=== PATIENT | female | born 1935 | race Caucasian/White ===

== ENCOUNTER 2019-07-16 15:16 | Inpatient (IN) ==
--- NOTE | 2019-07-16 15:31 | Diag Imaging Result Doc PS360 ---
CT HEAD W/O CONTRAST - 07/16/2019 INDICATION: stroke like symptoms COMPARISON: None FINDINGS: The ventricles and sulci are normal in size and contour. No intracranial mass or hemorrhage. There is mild periventricular white matter chronic microvascular ischemia. The skull is intact. The sinuses, mastoids, and middle ears are clear. IMPRESSION: No acute process. This exam was performed using automated exposure control, adjustment of mA or kV according to patient size, and/or use of iterative reconstruction technique Electronically signed by Jose E Rodriguez 07/16/2019 3:28 PM
[2019-07-16] MEDS ORDERED: D50W SYRINGE IV ONE ×2 (15:33→15:45)
[2019-07-16] MEDS ORDERED: AMIDATE ONE (15:42)
[2019-07-16] MEDS ORDERED: QUELICIN ONE (15:43)
[2019-07-16] MEDS ORDERED: NS 1,000 ML IV PRN (16:00)
--- NOTE | 2019-07-16 16:16 | EKG Report ---
Test Performed on : 07/16/2019 3:39:39 PM Test Reason : POSS STROKE Blood Pressure : / mmHG Vent. Rate : 091 BPM Atrial Rate : 091 BPM P-R Int : 200 ms QRS Dur : 092 ms QT Int : 402 ms P-R-T Axes : 062 011 054 degrees QTc Int : 494 ms Normal sinus rhythm. Prolonged QT Abnormal ECG When compared with ECG of 29-JUN-2019 10:37, (Unconfirmed) No significant change was found Unconfirmed Result
[2019-07-16 16:18] LABS: URINE SOURCE CATH
[2019-07-16 16:20] LABS: BILIRUBIN URINE NEGATIVE (NEGATIVE); BLOOD URINE NEGATIVE (NEGATIVE); COLOR YELLOW; GLUCOSE URINE TRACE mg/dL (NEGATIVE); KETONE URINE NEGATIVE (NEGATIVE); LEUKOCYTES URINE NEGATIVE (NEGATIVE); NITRITE URINE NEGATIVE (NEGATIVE); PH URINE 5.5; PROTEIN URINE NEGATIVE (NEGATIVE); SP GRAVITY URINE 1.019; TURBIDITY URINE CLEAR (CLEAR); UROBILINOGEN URINE NORMAL (NORMAL)
--- NOTE | 2019-07-16 16:21 | Diag Imaging Result Doc PS360 ---
CHEST-PORTABLE - 07/16/2019 INDICATION: stroke like symptoms COMPARISON: 11/10/2014 FINDINGS: The lungs are normally expanded and clear. Heart size and mediastinal contours are normal. No pneumothorax or pleural effusion. There is a right total shoulder prosthesis in good position. IMPRESSION: Negative exam. Electronically signed by Jose E Rodriguez 07/16/2019 4:19 PM
[2019-07-16 16:22] LABS: UR EPITHELIAL CELLS <10 /HPF (<10); URINE BACTERIA NEGATIVE /HPF; URINE RBC <10 /HPF (<10); URINE WBC <10 /HPF (<10)
[2019-07-16 16:23] LABS: HEMOGLOBIN 11.5 g/dL (12.0-16.0); LYMPH% 9.4 % (20.5-51.1); MCH 28.3 PG (27-31); MCHC 31.9 g/dL (33-37); MCV 88.7 FL (81-99); MPV 10.3 FL (7.4-10.4); NEUT% 75.8 % (42.2-75.2); PLT 399 X1000 (130-400); RBC 4.06 XMIL (4.2-5.4); RDW 15.1 % (11.5-14.5); WBC 10.98 X1000 (4.8-10.8)
[2019-07-16 16:24] LABS: BASO# 0.07 X1000 (0.0-0.2); BASO% 0.6 % (0.0-0.8); EOS# 0.34 X1000 (0.0-0.7); EOS% 3.1 % (0.0-10.0); IMM GRAN# 0.03 X1000 (0.0-0.04); IMM GRAN% 0.3 % (0.0-0.5); LYMPH# 1.03 X1000 (1.2-3.4); MONO# 1.19 X1000 (0.11-0.59); MONO% 10.8 % (1.7-9.3); NEUT# 8.32 X1000 (1.4-6.5)
[2019-07-16 16:28] LABS: INR 1.12; PROTIME 14.6 Seconds (11.0-16.0); PTT 32.4 Seconds (22.3-41.8)
[2019-07-16 16:36] LABS: ALB/GLOB RATIO 1.5; ALBUMIN 4.2 g/dL (3.5-5.0); CALCIUM 8.8 mg/dL (8.8-10.2); CREATININE 1.1 mg/dL (0.5-0.9); POTASSIUM 3.8 mmol/L (3.5-5.1); TOTAL BILIRUBIN 0.26 mg/dL (0.20-1.00)
[2019-07-16 16:38] LABS: UR AMPHETAMINES QUAL NONE DETECTED (NONE DETECT); UR BARBITUATES QUAL NONE DETECTED (NONE DETECT); UR BENZODIAZEPIN QUAL NONE DETECTED (NONE DETECT); UR CANNABINOIDS QUAL NONE DETECTED (NONE DETECT); UR COCAINE QUAL NONE DETECTED (NONE DETECT); UR METHADONE QUAL NONE DETECTED (NONE DETECT); UR OPIATES QUAL NONE DETECTED (NONE DETECT); UR OXYCODONE QUAL PRESUMPTIVE POSITIVE (NONE DETECT); UR PCP QUAL NONE DETECTED (NONE DETECT)
[2019-07-16] MEDS ORDERED: D10W 500 ML IV SCH (16:45)
--- NOTE | 2019-07-16 17:30 | PROVIDER DOCUMENTATION ---
This chart was entered by Liliam Mcghee Scribe, acting as scribe for Anthony Kaiser MD. HPI-General Adult - General Stated Complaint: stroke like Time Seen by Provider: 07/16/19 15:39 Source: RN/ Allergies/Adverse Reactions: Patient Allergies Allergy/AdvReac Type Severity Reaction Status Date / Time Penicillins Allergy Severe RASH Verified 06/17/19 05:38 Home Medications: Home Medication List Medication Instructions Recorded Confirmed Last Taken Type Amlodipine [Norvasc] 10 mg PO DAILY 11/10/14 06/17/19 06/17/19 04:30 History Cilostazol 50 mg PO BID 11/10/14 06/17/19 06/10/19 History Fenofibric Acid (Choline) 135 mg PO DAILY 11/10/14 06/17/19 06/16/19 19:00 Hist ory [Fenofibric Acid] Fluticasone 27.5 Mcg Nasal Spr 1 spray FRANCIS HS 11/10/14 06/17/19 06/15/19 History [Veramyst Nasal Powell] Indapamide 2.5 mg PO DAILY 11/10/14 06/17/19 06/16/19 08:00 History Insulin Glargine [Lantus] 75 unit SUBQ QHS 11/10/14 06/17/19 06/16/19 22:00 History 75 units Levothyroxine [Synthroid] 88 microgm PO DAILY 11/10/14 06/17/19 06/16/19 08:00 History Lisinopril 40 mg PO BID 11/10/14 06/17/19 06/16/19 06:00 History Meloxicam 7.5 mg PO BID 11/10/14 06/17/19 06/10/19 History Metformin [Glucophage] 1,000 mg PO BID 11/10/14 06/17/19 06/16/19 08:00 History Metoprolol [Lopressor] 100 mg PO BID 11/10/14 06/17/19 06/17/19 04:30 History PRAVAstatin [Pravachol] 40 mg PO QHS 11/10/14 06/17/19 06/16/19 19:00 History Insulin Aspart [Novolog] 40 unit SQ TID 06/09/19 06/17/19 06/16/19 18:00 History 40 units Insulin Regular, Human [Novolin R] 0 - 3 unit SQ DIRECTED 06/09/19 06/17/19 06/13/19 History Multivitamin with Minerals 1 ea PO DAILY 06/09/19 06/17/19 06/16/19 08:00 History [Multiple Vitamin] Vit A/Vit C/Vit E/Zinc/Copper 1 ea PO DAILY 06/09/19 06/17/19 06/16/19 History [Vision Formula Softgel] Oxycodone I.r. [Oxy Ir] 5 mg PO Q4-6H PRN PRN #40 cap 06/18/19 Unknown Rx - History of Present Illness -Gen Adult Nature of Presenting Problems: Patient is a 83 year old female who presents to the ED via EMS for altered mental status. EMS states patient was unresponsive on their arrival. RN states patient's FSBS was less than 20 on arrival to the ED. Location of Pain/Injury: reports: none Pain Radiation: reports: no radiation Quality of Pain: reports: none Severity: reports: mild Onset/Duration: reports: unsure Timing: reports: improving Associated Symptoms: reports: denies symptoms Similar Symptoms Previously?: Yes Recently seen or treated by another doctor?: Yes - Diabetes Related Context Context: reports: low blood sugar (less than 20) Review of Systems - Adult - REVIEW OF SYSTEMS - ADULT ROS:: unobtainable per condition Constitutional: reports: no symptoms reported Eyes: reports: no symptoms reported Ears, Nose, Mouth & Throat: reports: no symptoms reported Cardiovascular: reports: no symptoms reported Respiratory: reports: no symptoms reported Gastrointestinal: reports: no symptoms reported Genitourinary: reports: no symptoms reported Musculoskeletal: reports: no symptoms reported Integumentary: reports: no symptoms reported Neurological: reports: no symptoms reported Psychiatric: reports: no symptoms reported Endocrine: reports: no symptoms reported Hematologic/Lymphatic: reports: no symptoms reported Allergic/Immunologic: reports: no symptoms reported All Other Systems: Reviewed and Negative Past History - Adult - PAST MEDICAL HISTORY-ADULT Review of Records: reports: Old Records Reviewed, Nursing Assessment Review, Medications Reviewed, Social history reviewed & non-contributory. Major Childhood Illnesses: reports: denies history Cardiovascular: reports: HTN Respiratory: reports: denies history Gastrointestinal: reports: denies history Obstetrical/Gynecological: reports: denies history Genitourinary: reports: denies history Musculoskeletal: reports: arthritis Neurological: reports: denies history Endocrine/Immune: reports: Diabetes, thyroid disorder Other Conditions: reports: denies history - PRIOR SURGERIES/PROCEDURES Surgical/Procedure History: reports: reviewed, not pertinent, hysterectomy, j oint replacement - IMMUNIZATION STATUS Childhood Immunizations: See Nurse Assessment Flu Vaccine: See Nurse Assessment - FAMILY HISTORY Family History: reviewed, not pertinent - SOCIAL HISTORY Smoking: cigarettes (former) Substance Use: denies Physical Exam-General - PHYSICAL EXAM-ADULT Initial Vital Signs Reviewed: Yes - CONSTITUTIONAL General Appearance: no apparent distress, other (unresponsive). negative: anxious - EYES Eyes: pink conjunctivae, other (bilateral pupils measure 2 mm). negative: scleral icterus - HEAD, EARS, NOSE, MOUTH & THROAT HENMT: normocephalic/atraumatic, moist mucous membranes. negative: angioedema - RESPIRATORY Respiratory: chest non-tender, lungs clear, normal breath sounds. negative: crackles, rhonchi, stridor - CARDIOVASCULAR Cardiovascular: normal peripheral pulses, regular rate, rhythm. negative: tachycardia - GASTROINTESTINAL (ABDOMEN) Abdominal Exam: normal bowel sounds, non tender, soft. negative: guarding, rebound - MUSCULOSKELETAL Extremity: normal inspection. negative: deformity, erythema - SKIN Integumentary: normal color, normal turgor, warm/dry. negative: diaphoresis, ecchymosis, rash - NEUROLOGIC Neurologic: other (unable to assess per patient's condition) - PSYCHIATRIC Psych/Mental Status: other (unresponsive). negative: anxious, paranoid Progress - PLAN OF CARE/RESULTS Progress/Plan/Lab Results: Orders Category Date Time Status CT HEAD W/O CONTRAST [CT] Stat Exams 07/16/19 15:17 Completed Dextrose 50% Syringe [D50w Syringe] Med 07/16/19 15:45 Once 50 ml IV ONCE ONE Etomidate [Amidate] Med 07/16/19 15:42 Discontinued 40 mg .ROUTE .STK-MED ONE Succinylcholine [Quelicin] Med 07/16/19 15:43 Discontinued 200 mg .ROUTE .STK-MED ONE Result Diagrams: 07/16/19 15:40 07/16/19 15:40 - REASSESSMENT Reassessment #1 Time Reassessed: 15:52 Status: improving (patient received D50. patient is now awake, alert and answering questions.) - XRAY 1 XRAY Study: Chest Impression: See EMR Report ( CHEST-PORTABLE - 07/16/2019 INDICATION: stroke like symptoms COMPARISON: 11/10/2014 FINDINGS: The lungs are normally expanded and clear. Heart size and mediastinal contours are normal. No pneumothorax or pleural effusion. There is a right total shoulder prosthesis in good position. IMPRESSION: Negative exam. Electronically signed by Jose E Rodriguez 07/16/2019 4:19 PM 07/16/19 1619 Interpreting Physician: Jose E Rodriguez MD Dictated Date/Time: 07/16/19 1618 cc: Anthony Kaiser MD; Frank Sanchez Jr, MD) - CT/MRI 1 CT Study: Head Impression: See EMR Report ( CT HEAD W/O CONTRAST - 07/16/2019 INDICATION: stroke like symptoms COMPARISON: None FINDINGS: The ventricles and sulci are normal in size and contour. No intracranial mass or hemorrhage. There is mild periventricular white matter chronic microvascular ischemia. The skull is intact. The sinuses, mastoids, and middle ears are clear. IMPRESSION: No acute process. This exam was performed using automated exposure control, adjustment of mA or kV according to patient size, and/or use of iterative reconstruction technique Electronically signed by Jose E Rodriguez 07/16/2019 3:28 PM 07/16/19 1528 Interpreting Physician: Jose E Rodriguez MD Dictated Date/Time: 07/16/19 1527 cc: Saji Randhawa; Frank Sanchez Jr, MD) - CONSULTS/PCP/HOSPITALIST Notification #1 *Consult/PCP/Hospitalist*: Dr. Christensen for Dr. Sanchez Time Discussed: 17:25 Reason/Comments: Dr. Kaiser consulted with Dr. Christensen about patient. Consult Disposition: Admit Departure - Departure Date of Disposition Decision: 07/16/19 Time of Disposition Decision: 17:26 DIAGNOSIS: Hypoglycemia Disposition: ADMITTED INPATIENT 09 Certified Medical Emergency: Emergent Condition: Good Referrals and Follow-Ups: Frank Sanchez Jr, MD [Primary Care Provider] - - Critical Care Note This patient required my direct & personal management of CC.: No Attestation - Physician/ GAURANG Attestation Patient care was provided by Advanced Practice Provider:: No The physician spent face to face time with patient:: Yes Advanced Practice Provider documentation review:: Supervising physician onsite and consulted in the evaluation and care of this patient. The physician did have a face to face encounter with the patient. This chart was documented by the indicated scribe, (Liliam Mcghee Scribe) and accurately reflects the services I performed and decisions made by me, Anthony Kaiser MD, as attested by the provider's signature.
[2019-07-16] MEDS ORDERED: OXY IR PO PRN (19:08)
--- NOTE | 2019-07-16 19:37 | HISTORY AND PHYSICAL ---
HISTORY OF PRESENT ILLNESS: Ms. Hudson who is a 83-year-old white female had a passing-out spell this afternoon. People thought it was stroke because she became almost unconscious. She was brought in ambulance and during in the ambulance, she had a sugar cube in her mouth and actually at 1 point, her blood sugar was recorded as 20, but it came back up quick in the emergency room. When she was brought in, she was unconscious. Initially, she was resuscitated, but then she started talking and eating and she was admitted for further management. She had a similar episode once in the past. About 3 weeks ago she had a right shoulder replacement by Dr. Baltazar. At that time, she had a urinary tract infection which according to her, was not treated to her satisfaction. She has a history of diabetes and hypertension. MEDICATIONS: Include amlodipine 5 mg daily, cilostazol 50 mg b.i.d., fenofibric acid 135 mg daily, Flonase nasal spray, indapamide 2.5 mg tablet, insulin aspart which is NovoLog 40 units subcutaneous 3 times a day, insulin glargine which is Lantus 75 units subcu daily, levothyroxine 88 mcg daily, lisinopril 40 mg daily, meloxicam 7.5 mg daily, metformin 500 mg b.i.d., metoprolol 50 mg tablet b.i.d., multivitamin, oxycodone LR 5 mg q.4 to 6 hours p.r.n., pravastatin 40 mg daily, and multivitamin daily. PAST SURGICAL HISTORY: Reveals a history of left knee replacement. She had hysterectomy, cervical fusion. She had a mesh put in her bladder. She still is incontinent. REVIEW OF SYSTEMS: She has some dysuria. At present, she is alert. She thinks that she passed out. However, she does not recollect. Cardiopulmonary: Negative for chest pain or shortness of breath. PHYSICAL EXAMINATION: GENERAL: The patient is alert. VITAL SIGNS: Reveal temperature normal. Pulse 85 per minute, regular, respiratory rate 18 per minute, blood pressure 115/58 head normocephalic. HEENT: Pupils PERRLA. Fundus examination not done. NECK: Supple JVP normal. ENT: Examination unremarkable. There is no evidence of lymphadenopathy, thyroid enlargement, pedal edema, calf tenderness, anemia, cyanosis or clubbing. Pedal pulses feeble in both feet. BREASTS: Exam not done chest normal on inspection. LUNGS: Clear on auscultation PMI in the normal position. HEART: Sounds normal no murmur, gallop or rub noted. ABDOMEN: Nondistended. Hernial orifices normal. No guarding, rigidity, free fluid, masses, or organomegaly. Bowel sounds normal. RECTAL: Deferred. GUEST RELATIONS RECEPTIONIST: Higher functions normal. Cranial nerves normal. MOTOR AND SENSORY SYSTEM EXAMINATION: Unremarkable. Deep tendon reflexes normal. Plantars downgoing. SKULL AND SPINE EXAMINATION: Normal for age except for painful neck movements. There are no cerebellar signs or signs of meningeal irritation on local motor exam. SKIN: Unremarkable except for painful movements of the right shoulder on account of recent surgery. IMPRESSION: 1. The patient had a hypoglycemic episode with hypoglycemic encephalopathy and became unconscious. 2. The patient has insulin-dependent diabetes, hypertension, degenerative disk disease in the cervical spine and multiple other joints, recent surgery to the right shoulder with shoulder replacement. 3. Hypothyroidism. PLAN: To continue most of the treatments. Hold on her NovoLog coverage. We will put her on a sliding scale coverage and keep her on telemetry. cc: Jose Luis Christensen MD
[2019-07-16] MEDS ORDERED: PRAVACHOL PO SCH (21:00)
[2019-07-16] MEDS ORDERED: D5 1/2 NS + KCL 10 MEQ 1,000 ML IV SCH (21:00)
[2019-07-16] MEDS ORDERED: LANTUS INSULIN SUBQ SCH (21:00)
[2019-07-16] MEDS ORDERED: FLONASE NAS SCH (21:00)
[2019-07-16] MEDS: HUMALOG SUBQ SCH (22:00)
[2019-07-16] MEDS: GLUCOPHAGE PO SCH (22:00)
[2019-07-16] MEDS: PLETAL PO SCH (23:23)
[2019-07-16] MEDS: PRINIVIL PO SCH (23:24)
[2019-07-16] MEDS: LOPRESSOR PO SCH (23:24)
[2019-07-17 05:12] LABS: URINE SOURCE CLEAN CATCH
[2019-07-17 05:16] LABS: BILIRUBIN URINE NEGATIVE (NEGATIVE); BLOOD URINE NEGATIVE (NEGATIVE); COLOR YELLOW; GLUCOSE URINE >1000 mg/dL (NEGATIVE); KETONE URINE NEGATIVE (NEGATIVE); LEUKOCYTES URINE NEGATIVE (NEGATIVE); NITRITE URINE NEGATIVE (NEGATIVE); PROTEIN URINE NEGATIVE (NEGATIVE); SP GRAVITY URINE 1.016; TURBIDITY URINE CLEAR (CLEAR); UROBILINOGEN URINE NORMAL (NORMAL)
[2019-07-17 05:18] LABS: UR EPITHELIAL CELLS <10 /HPF (<10); URINE BACTERIA NEGATIVE /HPF; URINE RBC <10 /HPF (<10); URINE WBC <10 /HPF (<10)
[2019-07-17 06:02] LABS: CALCIUM 9.2 mg/dL (8.8-10.2)
[2019-07-17] MEDS: HUMALOG SUBQ SCH ×2 (07:10→11:00)
--- NOTE | 2019-07-17 08:40 | PROGRESS NOTE ---
DATE: 07/17/2019 SUBJECTIVE: The patient says she is feeling better now. She had been having some high blood sugars at home and she is on insulin. She had shoulder surgery about 3 weeks ago and then developed a resistant urinary tract infection with Pseudomonas. Trying to keep her out of the hospital at her request, we had her come to the hospital 3 days in a row to get injections of Fortaz, as the urinary tract infection was not sensitive to any oral antibiotics. Her urinalysis is now normal so that did work but when she came in she was unconscious and had a blood sugar of 20. There were concerns of other causes of her unconsciousness, but her CT scan of her head was normal, her EKG was essentially normal. She denies chest pain. She has had no weakness on 1 side of her body versus another. I believe this was just a hypoglycemic episode. She had been to physical therapy and had been working out more that day. She said that she had eaten but she is on a good bit of insulin with 40 units of NovoLog with each meal and Lantus insulin 75 units at bedtime. Even so, she was running high blood sugars initially. I do believe that her blood sugars are fluctuating so much because she had had surgery and because she had had a urinary tract infection. She is also on oxycodone, so she has several factors that could affect her blood sugars. Her blood sugar this morning is 300, has not had any of her Lantus. OBJECTIVE: Vital signs: Blood pressure is 122/64, respirations 18, temperature 98.1 degrees Fahrenheit. HEENT: She is normocephalic. EOMS intact. PERRLA. Throat clear. Lungs: Clear to auscultation and percussion without rhonchi, rales, or wheezes. Heart: Regular rate and rhythm without murmurs, gallops, friction rubs. Abdomen: Soft with active bowel sounds. No organomegaly or tenderness. Neurologic Exam: Cranial nerves II through XII intact grossly. Sensory and motor intact. Reflexes 1+ all. The patient does have diabetes mellitus, hypertension, hyperlipidemia, hypothyroidism, recent UTI which has cleared, recent surgery just 3 weeks ago, osteoarthritis, cervical disk disease, peripheral neuropathy. At this point, I think that her blood sugars have just been varying so much because of her recent UTI and her surgery. We will watch her this morning and see how she does. If blood sugars are adequate, we could probably consider discharge later today and just decrease her Lantus insulin from 75 units down to 65 units. She will just have to be careful with this. She can use her sliding scale if it gets too high and I would want to see her back in the office next week. If her blood sugars fluctuate wildly, we may have to watch her a little bit longer. We will just have to see how she does. She is certainly feeling more comfortable now. cc: MD Jose Luis Glasgow Jr, MD
[2019-07-17] MEDS ORDERED: THERA M PLUS PO SCH (09:00)
[2019-07-17] MEDS ORDERED: SYNTHROID PO SCH (09:00)
[2019-07-17] MEDS ORDERED: TRILIPIX PO SCH (09:00)
[2019-07-17] MEDS ORDERED: MOBIC PO SCH (09:00)
[2019-07-17] MEDS ORDERED: LOZOL PO SCH (09:00)
[2019-07-17] MEDS ORDERED: OCUVITE LUTEIN & ZEAXANTHIN PO SCH (09:00)
[2019-07-17] MEDS: PRINIVIL PO SCH (09:16)
[2019-07-17] MEDS: NORVASC PO SCH ×2 (09:17→09:20)
[2019-07-17] MEDS: GLUCOPHAGE PO SCH (09:17)
[2019-07-17] MEDS: LOPRESSOR PO SCH (09:18)
[2019-07-17] MEDS: PLETAL PO SCH (09:18)
[2019-07-17 11:12] VITALS: BP 107/54
--- NOTE | 2019-07-20 09:49 | DISCHARGE SUMMARY ---
ADMISSION DATE: 07/16/2019 DISCHARGE DATE: 07/17/2019 FINAL DIAGNOSES: 1. Hypoglycemia. 2. Syncope. 3. Recent urinary tract infection. 4. Diabetes mellitus. 5. Hyperlipidemia. 6. Hypothyroidism. DISCHARGE MEDICATIONS: Her discharge medications will include her regular home medications, but we will decrease her Lantus insulin from 75 units down to 65 units at bedtime. HISTORY OF PRESENT ILLNESS: Patient is an 83-year-old who came in with a syncopal episode. Initially it was thought she might have had a stroke, but blood sugar was revealed at only 20. The patient had had a urinary tract infection with Pseudomonas aeruginosa that was resistant to oral medications including Levaquin. She did not want to be placed in the hospital at that time, so we have been sending her over daily to the hospital for an outpatient injection of Fortaz and did this for 3 days, and the last injection was the day before she came in with a low blood sugar spell. She had called our office, or family members had, and said that she was having high blood sugar spells, but then she had this syncopal episode with a very low blood sugar. Blood sugars were corrected fairly soon in the emergency room. Urinalysis was now normal. PHYSICAL EXAMINATION: Vital Signs: On discharge show blood pressure 107/54, respirations 16, pulse 74, temperature 98.4 degrees Fahrenheit. HEENT: She is normocephalic. EOMS intact. PERRLA. Throat clear. Lungs: Clear to auscultation and percussion without rhonchi, rales, or wheezes. Heart: Regular rate and rhythm without murmurs, gallops, or friction rubs. Abdomen: Soft. Active bowel sounds. No organomegaly or tenderness. Neurologic: Exam intact grossly. DIAGNOSTIC DATA: CT scan of the head showed no acute changes. EKG showed no acute changes. PLAN: We felt that her syncope was due to her hypoglycemia. Probably, her blood sugars had been jumping around a good bit due to her infection, but that has cleared. The patient felt comfortable going home, and so we will discharge her with a decreased dose of Lantus insulin. We will see her back in the office within the next week with a 2 hour postprandial blood sugar. She is to call me if she has any other problems with this. cc: FrankMD Jose Luis Olivarez Jr, MD
== END 2019-07-17 14:23 | disposition home or self-care (01) | DRG 638 ==
LOC: SUPCPDRO → ED 15:16 → 4N 17:44
PROVIDERS: ADMIT Internal Medicine; ATTEND Emergency Medicine